=== PATIENT | female | born 1955 | race Caucasian/White ===

== ENCOUNTER 2023-07-19 09:30 | Outpatient (CLI) | payer OTHER, MEDICAID | END 2023-07-19 09:31 | disposition home or self-care (01) | LOC: CSHMAMMO 09:30 | PROVIDERS: ATTEND Nurse Practitioner | DX: Z12.31 Encounter for screening mammogram for malignant neoplasm of breast (principal) | CPT/HCPCS: 77063; 77067 ==

== ENCOUNTER 2024-04-23 11:07 | Inpatient (IN) | payer MEDICARE, MEDICAID ==
[2024-04-23] MEDS ORDERED: Aspirin Chewable 81 MG TAB ONE (11:58)
[2024-04-23] MEDS ORDERED: dilTIAZem 25 MG/5 ML VIAL ONE (11:59)
[2024-04-23 12:12] LABS: #Basophils 0.07 10x3/uL (0.0-0.2); #Monocytes 0.67 10x3/uL (0.0-1.1); #Neutrophils 5.85 10x3/uL (1.5-8.4); %Basophils 0.8 % (0.0-2.0); %Eosinophils 2.1 % (0.0-6.0); %Lymphocytes 26.4 % (18.0-47.0); %Monocytes 7.2 % (0.0-10.0); %Neutrophils 62.9 % (40.0-75.0); Mean Corpuscular HGB CONC 34.2 g/dL (32.0-36.0); Mean Corpuscular Hemoglobin 30.2 pg (27.0-33.0); Mean Corpuscular Volume 88.4 fL (81.6-98.3); Mean Platelet Volume 9.4 fL (7.4-10.4); Platelet Count 339 10x3/uL (150-450); RBC Distribution Width 13.6 % (11.5-14.5); White Blood Cell (WBC) Count 9.3 10x3/uL (3.5-10.5)
[2024-04-23 12:17] LABS: PTT 25.4 sec (22.0-33.0); Prothrombin Time 11.1 sec (9.5-12.1)
[2024-04-23] MEDS ORDERED: dilTIAZem 125 MG/25 ML SDV ONE (12:20)
[2024-04-23 12:23] LABS: ALT (SGPT) 26 U/L (8-55); AST (SGOT) 23 U/L (5-34); Albumin 3.6 g/dL (3.4-4.8); Alkaline Phosphatase 86 U/L (40-110); Anion Gap 14 mmol/L (10-20); BUN (Urea Nitrogen) 18 mg/dL (9.8-20.1); Bilirubin, Total 0.4 mg/dL (0.2-1.2); Calc. Creatinine Clearance 0 mL/min (70-130); Calcium 8.5 mg/dL (7.8-10.44); Carbon Dioxide 22 mmol/L (23-31); Chloride 110 mmol/L (98-107); Estimated GFR 77; Globulin 3.2 g/dL (2.4-3.5); Glucose 106 mg/dL (80-115); Magnesium 2.2 mg/dL (1.6-2.6); Potassium 4.2 mmol/L (3.5-5.1); Protein, Total 6.8 g/dL (5.8-8.1); Sodium 142 mmol/L (136-145)
[2024-04-23 12:25] LABS: Troponin I Less than 0.010 ng/mL (< 0.028)
[2024-04-23 15:10] LABS: Troponin I Less than 0.010 ng/mL (< 0.028)
[2024-04-23] MEDS ORDERED: HYDROcodone/Acetaminophen 5/325 mg Tablet PO PRN (16:07)
[2024-04-23 16:35] VITALS: BMI 38.4
[2024-04-23] MEDS: Acetaminophen 325 MG TAB PO PRN (17:01)
[2024-04-23] MEDS: Atorvastatin Calcium 20 MG TAB PO SCH (20:49)
[2024-04-23] MEDS: Famotidine 20 MG TAB PO SCH (20:49)
[2024-04-23] MEDS: Enoxaparin 100 MG (1 mL) SYRINGE SC SCH (20:49)
[2024-04-24] MEDS: traMADol HCl 50 MG TAB PO SCH (02:09)
[2024-04-24] MEDS: Ondansetron PF 4 MG/2 ML Vial IVP PRN (02:52)
[2024-04-24 03:41] LABS: #Basophils 0.05 10x3/uL (0.0-0.2); #Eosinphils 0.26 10x3/uL (0.0-0.5); #Monocytes 0.58 10x3/uL (0.0-1.1); #Neutrophils 4.84 10x3/uL (1.5-8.4); %Basophils 0.6 % (0.0-2.0); %Eosinophils 3.1 % (0.0-6.0); %Lymphocytes 31.6 % (18.0-47.0); %Monocytes 6.9 % (0.0-10.0); %Neutrophils 57.3 % (40.0-75.0); Hematocrit 35.1 % (34.9-44.5); Hemoglobin 11.7 g/dL (12.0-15.5); Mean Corpuscular HGB CONC 33.3 g/dL (32.0-36.0); Mean Corpuscular Hemoglobin 29.4 pg (27.0-33.0); Mean Corpuscular Volume 88.2 fL (81.6-98.3); Mean Platelet Volume 9.2 fL (7.4-10.4); Platelet Count 298 10x3/uL (150-450); RBC Distribution Width 13.6 % (11.5-14.5); Red Blood Cell (RBC) Count 3.98 10x6/uL (3.90-5.03); White Blood Cell (WBC) Count 8.4 10x3/uL (3.5-10.5)
[2024-04-24 03:59] LABS: Anion Gap 15 mmol/L (10-20); BUN (Urea Nitrogen) 16 mg/dL (9.8-20.1); Calc. Creatinine Clearance 119 mL/min (70-130); Calcium 8.4 mg/dL (7.8-10.44); Carbon Dioxide 21 mmol/L (23-31); Cardiac Risk 5.5 (Less than 4.5); Chloride 111 mmol/L (98-107); Cholesterol 183 mg/dl (< 200 Desired); Estimated GFR 87; Glucose 104 mg/dL (80-115); HDL Cholesterol 33 mg/dL (>60 Neg Risk); LDL Cholesterol, Calculated 134 mg/dL; Potassium 3.6 mmol/L (3.5-5.1); Sodium 143 mmol/L (136-145); Triglycerides 81 mg/dL (Less than 150)
[2024-04-24] MEDS ORDERED: Electrolyte Replacement Protocol 1 EACH FS PRN (07:43)
[2024-04-24] MEDS ORDERED: Enoxaparin 40 MG (0.4 mL) SYRINGE SC SCH (09:00)
[2024-04-24] MEDS: dilTIAZem 125 MG, Admixture Fee 1 EACH in Sodium Chloride 0.9% 100 ML IVPB SCH (09:08)
[2024-04-24] MEDS ORDERED: dilTIAZem 125 MG, Admixture Fee 1 EACH in Sodium Chloride 0.9% 100 ML IVPB SCH (10:15)
[2024-04-24] MEDS: Potassium Chloride 20 MEQ TAB PO SCH (10:39)
[2024-04-24] MEDS: Ketorolac Tromethamine 30 MG (1 mL) VIAL IVP SCH (12:33)
[2024-04-24] MEDS: Sotalol HCl 80 MG TAB PO SCH ×2 (12:39→20:27)
[2024-04-24 13:23] LABS: Hemoglobin A1c 6.1 % (4.0-6.0)
[2024-04-24] MEDS: Atorvastatin Calcium 40 MG TAB PO SCH (20:26)
[2024-04-24] MEDS: Apixaban 5 MG TAB PO SCH (20:26)
[2024-04-25 06:02] LABS: Hematocrit 37.3 % (34.9-44.5); Hemoglobin 12.5 g/dL (12.0-15.5)
[2024-04-25 06:13] LABS: Anion Gap 13 mmol/L (10-20); BUN (Urea Nitrogen) 16 mg/dL (9.8-20.1); Calc. Creatinine Clearance 106 mL/min (70-130); Calcium 8.6 mg/dL (7.8-10.44); Carbon Dioxide 24 mmol/L (23-31); Chloride 109 mmol/L (98-107); Estimated GFR 76; Glucose 93 mg/dL (80-115); Phosphorus 3.2 mg/dL (2.3-4.7); Potassium 3.9 mmol/L (3.5-5.1); Sodium 142 mmol/L (136-145)
[2024-04-25] MEDS: Digoxin 0.5 MG/2 ML AMP SLOW IVP SCH (10:48)
[2024-04-25] MEDS: Loratadine 10 MG TAB PO PRN (17:34)
[2024-04-26 08:02] VITALS: BP 136/93
[2024-04-26] MEDS: Digoxin 0.125 MG TAB PO SCH (08:06)
[2024-04-26] MEDS: Fluticasone Propionate Nasal Spray 16 gm Bottle NASAL SCH (08:09)
[2024-04-26 12:04] VITALS: TEMP 98.9
[2024-04-26] MEDS: Digoxin 0.5 MG/2 ML AMP SLOW IVP SCH (13:43)
== END 2024-04-26 16:50 | disposition home or self-care (01) | DRG 308 ==
LOC: CSHERS 11:07 → CSHTELE 15:32 → OBSVTOIN 04-24 08:25
PROVIDERS: ADMIT Internal Medicine; ATTEND Internal Medicine
DX: I48.91 Unspecified atrial fibrillation (principal); I50.21 Acute systolic (congestive) heart failure; E78.5 Hyperlipidemia, unspecified; N39.41 Urge incontinence; M17.0 Bilateral primary osteoarthritis of knee; Z79.899 Other long term (current) drug therapy
CPT/HCPCS: 36415; 71045; 80048; 80053; 80061; 83036; 83735; 83880; 84100; 84443; 84484; 85014; 85018; 85025; 85610; 85730; 93005; 93010; 93306; 94760; 96372; 96374; 96375; G0378; J1160; J1650; J1885; J2405

== ENCOUNTER 2024-05-30 10:36 | Day surgery (SDC) | payer MEDICARE, MEDICAID ==
[2024-05-30 11:24] LABS: #Basophils 0.09 10x3/uL (0.0-0.2); #Eosinphils 0.31 10x3/uL (0.0-0.5); #Monocytes 0.74 10x3/uL (0.0-1.1); #Neutrophils 5.01 10x3/uL (1.5-8.4); %Basophils 1.1 % (0.0-2.0); %Eosinophils 3.7 % (0.0-6.0); %Lymphocytes 26.7 % (18.0-47.0); %Monocytes 8.8 % (0.0-10.0); %Neutrophils 59.2 % (40.0-75.0); Hematocrit 38.6 % (34.9-44.5); Hemoglobin 12.6 g/dL (12.0-15.5); Mean Corpuscular HGB CONC 32.6 g/dL (32.0-36.0); Mean Corpuscular Hemoglobin 29.1 pg (27.0-33.0); Mean Corpuscular Volume 89.1 fL (81.6-98.3); Platelet Count 239 10x3/uL (150-450); Red Blood Cell (RBC) Count 4.33 10x6/uL (3.90-5.03); White Blood Cell (WBC) Count 8.4 10x3/uL (3.5-10.5)
[2024-05-30 11:33] LABS: INR-International Normal Ratio 1.1
[2024-05-30 11:36] LABS: ALT (SGPT) 20 U/L (8-55); AST (SGOT) 18 U/L (5-34); Albumin 3.7 g/dL (3.4-4.8); Alkaline Phosphatase 77 U/L (40-110); Anion Gap 14 mmol/L (10-20); BUN (Urea Nitrogen) 13 mg/dL (9.8-20.1); Bilirubin, Total 0.8 mg/dL (0.2-1.2); Calc. Creatinine Clearance 49 mL/min (70-130); Calcium 8.8 mg/dL (7.8-10.44); Carbon Dioxide 21 mmol/L (23-31); Chloride 111 mmol/L (98-107); Estimated GFR 77; Glucose 120 mg/dL (80-115); Protein, Total 6.7 g/dL (5.8-8.1); Sodium 142 mmol/L (136-145)
[2024-05-30] MEDS ORDERED: PROPOFOL 20 ML ONE (11:45)
== END 2024-05-30 13:24 | disposition home or self-care (01) ==
LOC: CSHSDC 10:36
PROVIDERS: ATTEND Specialist
PROC: 5A2204Z Restoration of Cardiac Rhythm, Single (ICD-10-PCS; principal; 2024-05-30)
DX: I48.91 Unspecified atrial fibrillation (principal)
CPT/HCPCS: 80053; 83735; 85025; 85610; 92960; J2704; 93005; 93010

== ENCOUNTER 2024-10-24 08:11 | Outpatient (CLI) | payer MEDICARE, MEDICAID | END 2024-10-24 08:12 | disposition home or self-care (01) | LOC: CSHMAMMO 08:11 | PROVIDERS: ATTEND Student in an Organized Health Care Education/Training Program | DX: Z12.31 Encounter for screening mammogram for malignant neoplasm of breast (principal) | CPT/HCPCS: 77063; 77067 ==

== ENCOUNTER 2024-11-13 08:46 | Outpatient (CLI) | payer MEDICARE, MEDICAID | END 2024-11-13 08:47 | disposition home or self-care (01) | LOC: CSHCT 08:46 | PROVIDERS: ATTEND Urology | DX: N32.81 Overactive bladder (principal); N39.0 Urinary tract infection, site not specified; N32.89 Other specified disorders of bladder | CPT/HCPCS: 74178 ==